=== PATIENT | male | born 1980 | race Caucasian/White ===

== ENCOUNTER 2020-10-06 00:05 | Inpatient (IN) | payer MEDICAID ==
[~2020-10-06] VITALS: Ht 170.2 cm; Wt 88.0 kg
[2020-10-06] MEDS ORDERED: heparin 10,000 units/1 ML INJ IV ONE (00:10)
[2020-10-06 00:37] LABS: PARTIAL THROMBOPLASTIN TIME 44 SECONDS (22-32)
[2020-10-06] MEDS: heparin 25,000 UNIT/250ml bag 250 ML IV SCH ×2 (00:38→09:09)
[2020-10-06] MEDS ORDERED: nitroGLYCERIN-Tridil 50MG/D5W 250 ML IV PRN (01:25)
[2020-10-06 01:44] LABS: ALANINE AMINOTRANSFERASE 49 U/L (12-78); ALBUMIN 4.2 G/DL (3.4-5.0); ALBUMIN/GLOBULIN RATIO 1.1 (1.1-1.5); ALKALINE PHOSPHATASE 86 IU/L (46-116); ANION GAP 11 (8-16); ASPARTATE AMINO TRANSFERASE 111 U/L (10-37); BILIRUBIN,TOTAL 0.7 MG/DL (0.1-1.0); BLOOD UREA NITROGEN 17 MG/DL (7-18); BUN/CREATININE RATIO 13.8 (5.4-32.0); CALCIUM 9.9 MG/DL (8.5-10.1); CHLORIDE 102 MMOL/L (99-107); CREATININE 1.23 MG/DL (0.60-1.10); GLUCOSE 137 MG/DL (70-104); POTASSIUM 3.5 MMOL/L (3.5-5.1); SODIUM 140 MMOL/L (135-145); TOTAL CARBON DIOXIDE 27.1 MMOL/L (24-32); TOTAL PROTEIN 8.2 G/DL (6.4-8.2); eGFR 65 ML/MIN
[2020-10-06] MEDS ORDERED: nitroGLYCERIN 0.4mg/hour patch TD ONE (01:50)
--- NOTE | 2020-10-06 02:09 | NUR ---
UNABLE TO COMPLETE MEDICATION RECONCILITATION AT THIS TIME. PATIENT STATES THAT HE DOES TAKE MEDICATIONS BUT DOES NOT KNOW WHAT THEY ARE AND DOES NOT HAVE ACCESS TO A LIST. NO EXTERNAL MEDICATION HISTORY AVAILABLE
[2020-10-06] MEDS ORDERED: metoprolol tartrate 1mg/ml inj IV ONE (02:20)
[2020-10-06] MEDS ORDERED: potassium Cl 20 mEq SR tablet PO PRN ×2 (02:25)
[2020-10-06] MEDS ORDERED: ondansetron/PF 4mg/2ml inj IV PRN (02:25)
[2020-10-06] MEDS ORDERED: normal saline 1000ml 1,000 ML IV SCH (02:25)
[2020-10-06] MEDS ORDERED: magnesium hydroxide 30ml (MOM) UD suspension PO PRN (02:25)
[2020-10-06] MEDS ORDERED: mag hydrox/Alum hydrox/simeth 30ml oral suspension PO PRN (02:25)
[2020-10-06] MEDS ORDERED: acetaminophen 325mg tablet PO PRN (02:25)
[2020-10-06] MEDS ORDERED: morphine 2 MG/ML inj. syringe IV PRN ×2 (02:25)
[2020-10-06] MEDS ORDERED: potassium CL 10mEq/100ml bag 100 ML IV PRN ×2 (02:25)
[2020-10-06 03:22] LABS: HEMOGLOBIN A1C 5.9 % (4.5-6.2)
[2020-10-06 03:32] VITALS: BP 161/101
--- NOTE | 2020-10-06 03:38 | NUR ---
Pt uncooperative with admission questions and falls asleep before answering.
[2020-10-06 06:00] VITALS: BP_SYST 143; BP_SYST 167; BP_DIAS 89; BP_DIAS 91
[2020-10-06] MEDS ORDERED: OMEP20TA23 PO (07:14)
[2020-10-06] MEDS: K and/or MAG REPLACEMENT MC SCH ×2 (08:00→20:00)
[2020-10-06] MEDS ORDERED: pantoprazole 40mg Tablet.DR PO SCH (08:00)
[2020-10-06] MEDS ORDERED: atorvastatin 20mg tablet PO SCH (08:00)
[2020-10-06] MEDS: metoprolol tartrate 25mg tablet PO SCH ×2 (08:17→19:26)
[2020-10-06] MEDS: aspirin 325mg tablet, delayed-release (Ecotrin) PO SCH (08:17)
--- NOTE | 2020-10-06 08:20 | NUR ---
PAGER ID: [phone] MESSAGE: [id number] Gil Christopher 3hr trop 9.74 ASUNCION Weber ext [phone]
--- NOTE | 2020-10-06 08:32 | NUR ---
PAGER ID: [phone] MESSAGE: [id number] Can we add the protocol bolus part of the cardiac heparin gtt. He is on the heparin cardiac protocol and it says to give a bolus if PTT is low but no order in the eMAR. ASUNCION Weber Ext [phone]
[2020-10-06] MEDS ORDERED: heparin 10,000 units/1 ML INJ IV PRN (08:50)
--- NOTE | 2020-10-06 08:52 | NUR ---
PAGER ID: [phone] MESSAGE: [id number] Gil Christopher: Do you want a drug tox screen due to meth hx? ASUNCION Weber Ext [phone]
[2020-10-06] MEDS: pantoprazole 40mg Tablet.DR PO SCH (09:51)
[2020-10-06 11:00] VITALS: BP 143/92
[2020-10-06 11:00] LABS: CHOL/HDL RATIO 3.2 (0.00-4.99); CHOLESTEROL 211 MG/DL (0-200); HDL CHOLESTEROL 66 MG/DL (35-60); LDL CHOLESTEROL 139 MG/DL (50-100); TRIGLYCERIDES 29 MG/DL (20-135)
--- NOTE | 2020-10-06 11:57 | NUR ---
PAGER ID: [phone] MESSAGE: [id number] Gil Gravlexie: Trop 12 ASUNCION Weber Ext [phone]
[2020-10-06] MEDS ORDERED: LIDOcaine/PRILOcaine 5gm cream TP ONE (12:20)
[2020-10-06] MEDS ORDERED: nitroGLYCERIN-Tridil 50MG/D5W 250 ML IV ONE (12:52)
[2020-10-06] MEDS ORDERED: midazolam 2 mg/2 ml injection ONE (12:53)
[2020-10-06] MEDS ORDERED: heparin 1,000unit/ml 10ml vial 10 ML ONE (12:53)
[2020-10-06] MEDS ORDERED: verapamil 2.5 mg/ml inj IV ONE (12:53)
[2020-10-06] MEDS ORDERED: fentaNYL/PF 50MCG/1 ML 2ML syringe ONE (12:53)
[2020-10-06] MEDS ORDERED: iohexol 350 MG/ML 50ML vial IV ONE (12:53)
[2020-10-06] MEDS ORDERED: LIDOcaine 1% (10mg/ml)w/preservative injection 20ml MDV ONE (12:53)
[2020-10-06] MEDS ORDERED: iohexol 350 MG/1 ML 200ml bottle ONE (12:53)
[2020-10-06] MEDS: normal saline 1000ml 1,000 ML IV SCH ×3 (12:57→22:20)
[2020-10-06] MEDS ORDERED: clopidogrel 300mg tablet ONE (14:09)
--- NOTE | 2020-10-06 15:44 | NUR ---
Pagelakhwinder hospitalist, "Gwen [id number] Gil Churchill trop 78.83 post right radial cath. FYI."
[2020-10-06 15:48] VITALS: BP 129/95
[2020-10-06 18:00] VITALS: BP 134/84
--- NOTE | 2020-10-06 18:07 | NUR ---
Patient in room PCU 3012. I have received report from Gus ROLAND and had the opportunity to ask questions and assume patient care.
--- NOTE | 2020-10-06 18:07 | NUR ---
Problems reprioritized. Patient report given, questions answered & plan of care reviewed with ASUNCION Newby.
[2020-10-06 19:57] LABS: URINE AMPHETAMINE SCREEN POSITIVE (Neg); URINE BARBITUATE SCREEN NEGATIVE (Neg); URINE BENZODIAZEPINES SCREEN POSITIVE (Neg); URINE CANNABINOID SCREEN POSITIVE (Neg); URINE COCAINE SCREEN NEGATIVE (Neg); URINE METHADONE SCREEN NEGATIVE (Neg); URINE OPIATE SCREEN NEGATIVE (Neg); URINE PHENCYCLIDINE SCREEN NEGATIVE (Neg)
[2020-10-06 22:00] VITALS: BP 144/101
[2020-10-07] MEDS: normal saline 1000ml 1,000 ML IV SCH (00:10)
[2020-10-07 02:00] VITALS: BP 135/91
[2020-10-07 06:05] LABS: BASOPHILS % (AUTO) 0.3 % (0-1); EOSINOPHILS % (AUTO) 0.5 % (0-6); HEMATOCRIT 40.4 % (42.0-52.0); HEMOGLOBIN 13.5 g/dl (14.0-17.9); LYMPHOCYTES # (AUTO) 2.2 X10'3 (1.1-4.8); MEAN CORPUSCULAR HEMOGLOBIN 30.2 PG (27.0-31.0); MEAN CORPUSCULAR HGB CONC 33.5 g/dL (33.0-36.5); MEAN CORPUSCULAR VOLUME 90.1 FL (78-98); MEAN PLATELET VOLUME 7.1 FL (7.4-10.4); MONOCYTES # (AUTO) 1.4 X10'3 (0-0.9); MONOCYTES % (AUTO) 13.2 % (2-12); NEUTROPHILS # (AUTO) 7.1 X10'3 (1.8-7.7); PLATELET COUNT 285 X10'3 (140-440); RED BLOOD COUNT 4.48 X10'6 (4.70-6.10); RED CELL DISTRIBUTION WIDTH 13.8 % (11.5-14.5); WHITE BLOOD COUNT 10.8 X10'3 (4.5-11.0)
--- NOTE | 2020-10-07 06:21 | NUR ---
Problems reprioritized. Patient report given, questions answered & plan of care reviewed with Sonya ROLAND.
--- NOTE | 2020-10-07 06:24 | NUR ---
Patient in room U 3018. I have received report from ASUNCION Newby and had the opportunity to ask questions and assume patient care. Patient asleep in bed and in no acute distress.
[2020-10-07 06:30] LABS: ALANINE AMINOTRANSFERASE 45 U/L (12-78); ALBUMIN 3.3 G/DL (3.4-5.0); ALBUMIN/GLOBULIN RATIO 0.9 (1.1-1.5); ALKALINE PHOSPHATASE 74 IU/L (46-116); ANION GAP 8 (8-16); ASPARTATE AMINO TRANSFERASE 113 U/L (10-37); BILIRUBIN,TOTAL 0.6 MG/DL (0.1-1.0); BLOOD UREA NITROGEN 19 MG/DL (7-18); BUN/CREATININE RATIO 17.6 (5.4-32.0); CALCIUM 8.2 MG/DL (8.5-10.1); CHLORIDE 105 MMOL/L (99-107); CHOL/HDL RATIO 2.9 (0.00-4.99); CHOLESTEROL 161 MG/DL (0-200); CREATININE 1.08 MG/DL (0.60-1.10); GLUCOSE 109 MG/DL (70-104); HDL CHOLESTEROL 55 MG/DL (35-60); LDL CHOLESTEROL 97 MG/DL (50-100); POTASSIUM 3.8 MMOL/L (3.5-5.1); SODIUM 140 MMOL/L (135-145); TOTAL CARBON DIOXIDE 26.7 MMOL/L (24-32); TOTAL PROTEIN 7.1 G/DL (6.4-8.2); TRIGLYCERIDES 67 MG/DL (20-135); eGFR 75 ML/MIN
[2020-10-07 07:00] VITALS: BP 121/69
[2020-10-07] MEDS: aspirin 325mg tablet, delayed-release (Ecotrin) PO SCH (07:08)
[2020-10-07 07:09] VITALS: BP_SYST 121
[2020-10-07] MEDS: metoprolol tartrate 25mg tablet PO SCH (07:09)
[2020-10-07] MEDS: pantoprazole 40mg Tablet.DR PO SCH (07:09)
[2020-10-07] MEDS: K and/or MAG REPLACEMENT MC SCH (07:12)
[2020-10-07] MEDS ORDERED: atorvastatin 20mg tablet PO SCH (08:00)
[2020-10-07] MEDS ORDERED: lisinopril 10 MG tablet PO SCH (08:00)
[2020-10-07] MEDS ORDERED: clopidogrel 75mg tablet PO SCH (08:00)
[2020-10-07] MEDS ORDERED: LISI10TA4 PO (09:04)
[2020-10-07] MEDS ORDERED: metoprolol tartrate tablet PO (09:04)
[2020-10-07] MEDS ORDERED: CLOP75TA35 PO (09:04)
[2020-10-07] MEDS ORDERED: ATOR20TA66 PO (09:04)
[2020-10-07] MEDS ORDERED: ASPI-845 PO (09:04)
--- NOTE | 2020-10-07 09:55 | NUR ---
Patient stable for discharge per MD orders. All discharge instructions reviewed and questions answered appropriately. Belongings collected and sent with patient. New prescriptions given to patient and patient stated that he will take to either [facility] or [facility] in [place] to fill. Patient stated that they would call for a follow up appointment to be made. PIV x 2 discontinued. library monitor discontinued. Patient wheeled down to lobby and left via private vehicle.
--- NOTE | 2020-10-07 13:23 | NUR ---
Attempted to call patient's mother to get ahold of the patient so that the patient may follow up with Dr. Boyd. Left a voicemail the first time and attempted two other times as well. Will continue to call back.
== END 2020-10-07 09:55 | disposition home or self-care (01) | DRG 174 ==
LOC: ER 00:07 → PCU 3S 02:24 → CMPBEDREQ 05:20 → PCU 3S 10-07 05:25
PROVIDERS: ADMIT Internal Medicine; ATTEND Internal Medicine
PROC: 4A023N7 Measurement of Cardiac Sampling and Pressure, Left Heart, Percutaneous Approach (ICD-10-PCS; principal; 2020-10-07)
PROC: B2111ZZ Fluoroscopy of Multiple Coronary Arteries using Low Osmolar Contrast (ICD-10-PCS; 2020-10-07)
PROC: B2151ZZ Fluoroscopy of Left Heart using Low Osmolar Contrast (ICD-10-PCS; 2020-10-07)
PROC: 027034Z Dilation of Coronary Artery, One Artery with Drug-eluting Intraluminal Device, Percutaneous Approach (ICD-10-PCS; 2020-10-07)
DX: I21.4 Non-ST elevation (NSTEMI) myocardial infarction (principal); I50.21 Acute systolic (congestive) heart failure; I16.9 Hypertensive crisis, unspecified; Z82.49 Family history of ischemic heart disease and other diseases of the circulatory system; F17.200 Nicotine dependence, unspecified, uncomplicated; F15.90 Other stimulant use, unspecified, uncomplicated; I11.0 Hypertensive heart disease with heart failure; E78.5 Hyperlipidemia, unspecified
CPT/HCPCS: 36415; 76937; 80053; 80061; 80305; 83036; 83880; 84484; 85025; 85347; 85610; 85730; 87081; 93005; 93306; 93308; 93458; 96374; 99152; 99153; 99285; A4620; A5120; A6258; C1725; C1751; C1769; C1874; C1894; C9600; G0378; J1644; J2001; J2250; J3010; J3490; J7030; Q9967